=== PATIENT | male | born 1955 | race Hispanic/Latino ===

== ENCOUNTER 2018-11-03 08:40 | Day surgery (SDC) | payer BC ==
--- NOTE | 2018-11-02 07:05 | EKG ---
Test Date: 2018-11-01 Test Time: 11:16:30 Planing Machine Operator: AV MEASUREMENT RESULTS: Intervals: Rate: 59 TN: 198 QRSD: 104 QT: 406 QTc: 401 Howard: P: 56 TN: 198 QRS: 53 T: 69 INTERPRETIVE STATEMENTS: Sinus bradycardia Nonspecific T wave abnormality Abnormal ECG Compared to ECG 05/05/2003 18:17:00 T-wave abnormality now present Sinus rhythm no longer present Electronically Signed On 11-02-18 07:02:35 CDT by Parminder Montiel
--- OUTSIDE RECORDS SUMMARY | 2018-11-03 08:45 | XMS REPORT | Continuity of Care Document ---
:1955 Author Organization [employer] [facility] Care Team Providers Name Role Phone [employer] [facility] Unavailable Unavailable Problems Problem Status Onset Classification Date Comments Source Date Reported ELIZA Active 05/10/19 [place] Other pulmonary 03/11/20 09/25/2018 [facility] embolism without 18 [place] acute cor pulmonale CCL LHC W Active 10/18/19 [place] POSSIBLE 18 Asbestosis Active Problem 10/26/2018 Medical Group, [facility] [place], [place] Asthma Active Problem 10/26/2018 [facility] Group, [place] Hypertension Active Problem 10/26/2018 [facility] Group, [place] Insomnia Active Problem 10/26/2018 [facility] Group, [facility], [place] Obesity Active Problem 10/26/2018 Medical Group, OPID [place],[facility], [place] Chest pain, 09/25/2018 [facility] unspecified [place] Shortness of 09/25/2018 [facility] breath [place] Sleep apnea, 09/25/2018 [facility] unspecified [place] Medications Medication Details Route Status Patient Ordering Order Source Instructions Provider Date amLODIPine 10 =1 tab, PO, Active Medical mg oral tablet Daily, # 90 019 Group tab, Refill(s) 3, Pharmacy: [facility] [id number] losartan 50 mg =1 tab, PO, Active Medical oral tablet Daily, # 90 019 Group tab, Refill(s) 3, Pharmacy: [facility] 76356 Levofloxacin 500 mg=1 No Longer Medical 500 MG Oral tab, PO, Active 018 Group Tablet Q24H, X 10 [Levaquin] day, # 10 tab, 0 Refill(s), Pharmacy: [facility] 98273 losartan 50 mg 50 mg=1 tab, No Longer Medical oral tablet PO, Daily, # Active 018 Group 90 tab, 1 Refill(s), Pharmacy: [facility] 07609 Aspirin 81 MG 81 mg=1 tab, Active Medical Enteric Coated PO, Daily, # 018 Group Tablet 90 tab, 3 Refill(s), Pharmacy: [facility] [address]8744 Amlodipine 5 MG 5 mg, PO, Active Medical Oral Tablet Daily, # 90 018 Group [Norvasc] tab, 3 Refill(s), Pharmacy: [facility] [address]34 atorvastatin 20 20 mg=1 tab, Active Medical mg oral tablet PO, Daily, # 018 Group 90 tab, 3 Refill(s), Pharmacy: [facility] [address] carvedilol 3.125 mg=1 Active Medical 3.125 mg oral tab, PO, 018 Group tablet BID, # 180 tab, 3 Refill(s), Pharmacy: [facility] [address]163 valsartan 160 160 mg=1 Active Medical mg oral tablet tab, PO, 018 Group Daily, # 90 tab, 3 Refill(s), Pharmacy: [facility] [address] valsartan 320 mg, 2 No Longer tab, Route: Active 018 [facility] PO, Drug form: TAB, Daily, Dosing Weight 95.5, kg, Start date: 10/20/17 9:00:00 CDT, Duration: 30 day, Stop date: 11/18/17 9:00:00 CDTNotes: Same as Diovan tiotropium 18 No Longer 0.018 MG/ACTUAT microgram, 1 Active 018 [facility] Inhalant Powder inhalation, [Spiriva] Route: INHALATION, Drug form: CAP, Daily, Dosing Weight 95.5, kg, Start date: 10/20/17 9:00:00 CDT, Duration: 30 day, Stop date: 11/18/17 9:00:00 CDTNotes: (Same As: Spiriva) Isosorbide 30 mg, 1 No Longer tab, Route: Active 018 [facility] PO, Drug form: ERTAB, QAM, Dosing Weight 95.5, kg, Start date: 10/20/17 9:00:00 CDT, Duration: 30 day, Stop date: 11/18/17 9:00:00 CDTNotes: (Same as:Imdur) "Do Not Crush" Take on empty stomach/ full glass of water. Do not crush atorvastatin 20 mg, 1 No Longer MH tab, Route: Active 018 [facility] PO, Drug form: TAB, Daily, Dosing Weight 95.5, kg, Start date: 10/20/17 9:00:00 CDT, Duration: 30 day, Stop date: 11/18/17 9:00:00 CDTNotes: (Same As: Lipitor) Aspirin 81 MG 81 mg, 1 No Longer MH Enteric Coated tab, Route: Active 018 [facility] Tablet PO, Drug form: ECTAB, Daily, Dosing Weight 95.5, kg, Start date: 10/20/17 9:00:00 CDT, Duration: 30 day, Stop date: 11/18/17 9:00:00 CDTNotes: Do not crush or chew. (Same As: Ecotrin) Amlodipine 10 mg, 1 No Longer MH tab, Route: Active 018 [facility] PO, Drug form: TAB, Daily, Dosing Weight 95.5, kg, Start date: 10/20/17 9:00:00 CDT, Duration: 30 day, Stop date: 11/18/17 9:00:00 CDTNotes: (Same as: Norvasc) Norvasc 5 mg, 1 tab, No Longer MH Route: PO, Active 018 [facility] Drug form: TAB, Daily, Dosing Weight 95.5, kg, Start date: 10/20/17 9:00:00 CDT, Duration: 30 day, Stop date: 11/18/17 9:00:00 CDTNotes: (Same as: Norvasc) carvedilol 3.125 mg, 1 Inactive MH tab, Route: 018 [place] PO, Drug form: TAB, BID, Dosing Weight 95.5, kg, Start date: 10/19/17 17:00:00 CDT, Duration: 30 day, Stop date: 11/18/17 9:00:00 CDTNotes: Give with food. (Same As: Coreg) albuterol 90 2 puff, Inactive mcg/inh Route: [facility] inhalation INHALATION, aerosol Drug Form: AERO/A, Dosing Weight 95.5, kg, Q4H, Start date: 10/19/17 12:00:00 CDT, Duration: 30 day, Stop date: 11/18/17 8:00:00 CDTNotes: Albuterol 90 microgram/in h 8gm HFA WASTE: Aerosol - Return to Pharmacy Same as: [facility] Amlodipine 5 MG 5 mg, PO, Active Oral Tablet Daily, # 30 018 [facility] [Norvasc] tab, 0 Refill(s), Pharmacy: [facility] Ondansetron 4 mg, 2 mL, Inactive Route: IVP, [facility] Drug form: INJ, Q8H, Dosing Weight 95.5, kg, PRN Nausea & Vomiting, Start date: 10/19/17 11:12:00 CDT, Duration: 30 day, Stop date: 11/18/17 11:11:00 CDTNotes: (Same as: Zofran) MEDICATION WASTE Product Size: 4 mg Product Wasted: ___ mg Acetaminophen 650 mg, 2 Inactive tab, Route: [facility] PO, Drug form: TAB, Q4H, Dosing Weight 95.5, kg, PRN Pain Score 1-3, Start date: 10/19/17 11:12:00 CDT, Duration: 30 day, Stop date: 11/18/17 11:11:00 CDTNotes: Do not exceed 4 gm/day. (Same as: Tylenol) tramadol 50 mg, 1 Inactive hydrochloride tab, Route: 50 MG Oral PO, Drug Tablet form: TAB, Q6H, Dosing Weight 95.5, kg, PRN Pain Score 4-6, Start date: 10/19/17 11:12:00 CDT, Duration: 30 day, Stop date: 11/18/17 11:11:00 CDTNotes: Not to exceed 400mg/day. (Same As: Ultram) amLODIPine 10 10 mg, PO, Inactive mg oral tablet Daily, 0 018 [facility] Refill(s) albuterol 90 180 Active mcg/inh microgram=2 018 [facility] inhalation puff, aerosol INHALATION, Q4H, 0 Refill(s) valsartan 320 320 mg, PO, Active mg oral tablet Daily, 0 018 [facility] Refill(s) tiotropium 18 Active 0.018 MG/ACTUAT microgram=1 018 [facility] Inhalant Powder cap, [Spiriva] INHALATION, Daily, 0 Refill(s) aspirin 81 mg 81 mg, 1 Inactive tablet, tab, Route: 018 [facility] chewable CHEW, Drug form: CHEWTAB, Daily, Start date: 10/19/17 10:00:00 CDT, Duration: 30 day, Stop date: 11/18/17 9:00:00 CDTNotes: Take with food. Sodium Chloride 1,000 mL, Inactive 0.9% IV 1,000 Rate: 100 018 [facility] mL ml/hr, Infuse over: 10 hr, Route: IV, Dosing Weight 99.318 kg, Total Volume: 1,000, Start date: 10/19/17 9:46:00 CDT, Duration: 30 day, Stop date: 11/18/17 9:45:00 CDT, 2.18, m2 isosorbide 30 mg=1 tab, No Longer Medical mononitrate 30 PO, QAM, 0 Active 018 Group mg oral tablet, Refill(s) extended release carvedilol 3.125 mg=1 Active Medical 3.125 mg oral tab, PO, 018 Group tablet BID, 0 Refill(s) atorvastatin 20 20 mg=1 tab, Active Medical mg oral tablet PO, Daily, 0 018 Group Refill(s) Aspirin 81 MG 81 mg=1 tab, Active Medical Enteric Coated PO, Daily 018 Group Tablet Phentermine 37.5 mg=1 Active Medical Hydrochloride tab, PO, 018 Group 37.5 MG Oral Daily, X 30 Tablet day, # 30 tab, 0 Refill(s) 200 ACTUAT 2 puff, Active Medical Albuterol 0.09 INHALATION, 018 Group MG/ACTUAT Dry Q4H, # 1 ea, Powder Inhaler 5 Refill(s), [ProAir] Pharmacy: [facility] [id number] Allergies, Adverse Reactions, Alerts Substance Category Reaction Severity Reaction Status Date Comments Source type Reported codeine Assertion Nausea and Drug Active vomiting allergy Medical Group Immunizations Immunization Date Site Status Last Updated Comments Source Given influenza virus Left completed [facility] vaccine, 8 Deltoid Group, inactivated [facility] [place] Results No Data Provided for This Section Pathology Reports No Data Provided for This Section Diagnostic Reports Report Value Date Source Chest Pulmonary CT of chest with IV contrast (pulmonary embolism protocol), 03/07/2018 03/07/2018 [facility] [place] Embolism CTA HISTORY: Chest pain. Shortness of breath. Sleep apnea. TECHNIQUE: Sequential 2.5 mm axial images were obtained from the thoracic inlet through the hemidiaphragms following the bolus infusion of 100 mL of Omnipaque 300 contrast. Multiplanar sagittal and ej nal MIP reconstructions were performed. DLP: 646 mGy-cm. AEC, mA/kV adjustment by patient size, and/or iterative reconstruction technique were used, per departmental dose-optimization program. FINDINGS: Normal heart size. Nondilated thoracic aorta and main pulmonary artery. No evidence of coronary artery calcifications or pericardial effusion. No evidence of hilar or mediastinal mass or lymph node enlargement. No evidence of axillary or supraclavicular lymphadenopathy. Normal thyroid. No evidence of central, segmental, or subsegmental pulmonary emboli. Mildly elevated right hemidiaphragm. Minimal linear atelectasis at the lung bases. No evidence of lobar consolidation, pleural effusions, noncalcified lung nodules, lung cancer, pulmonary emphysema, or interstitial lung disease. No evidenc e of bronchiectasis, peribronchial thickening or inspissated bronchi. Mild degenerative changes in the thoracic spine. Images of the upper abdomen demonstrate no abnormality. IMPRESSION: No evidence of pulmonary emboli. Consultation Notes No Data Provided for This Section Discharge Summaries No Data Provided for This Section History and Physicals No Data Provided for This Section Vital Signs Vital Sign Value Date Comments Source BMI Calculated 35.26 04/07/2018 Medical Group Height 167.64 cm 04/07/2018 Medical Group Weight 99.091 04/07/2018 Medical Group Temperature Oral (F) 98.4 F 04/07/2018 Medical Group Heart Rate 63 04/07/2018 [facility] Group Systolic (mm Hg) 119 04/07/2018 Medical Group Diastolic (mm Hg) 76 04/07/2018 Medical Group BMI Calculated 34.61 11/11/2017 Medical Group Weight 97.273 11/11/2017 Medical Group Temperature Oral (F) 98.1 F 11/11/2017 Medical Group Height 167.64 cm 11/11/2017 Medical Group Heart Rate 66 11/11/2017 Medical Group Systolic (mm Hg) 117 11/11/2017 Medical Group Diastolic (mm Hg) 78 11/11/2017 Medical Group Weight 99 10/24/2017 Medical Group Height 167.64 cm 10/24/2017 Medical Group BMI Calculated 35.23 10/24/2017 [facility] Group Systolic (mm Hg) 126 10/24/2017 Medical Group Diastolic (mm Hg) 86 10/24/2017 Medical Group Temperature Oral (F) 98.4 F 10/24/2017 Medical Group Heart Rate 70 10/24/2017 Medical Group Temperature Oral (F) 98.2 F 10/19/2017 [facility] Respitory Rate 13 10/19/2017 [facility] Systolic (mm Hg) 93 10/19/2017 [facility] Diastolic (mm Hg) 59 10/19/2017 [facility] Weight 95.5 10/19/2017 [facility] BMI Calculated 33.98 10/19/2017 [facility] Height 167.64 cm 10/19/2017 [facility] Height 167.64 cm 10/17/2017 Medical Group Weight 99.318 10/17/2017 Medical Group BMI Calculated 35.34 10/17/2017 Medical Group Heart Rate 66 10/17/2017 [facility] Group Systolic (mm Hg) 114 10/17/2017 Medical Group Diastolic (mm Hg) 75 10/17/2017 [facility] Group Temperature Oral (F) 98.1 F 10/17/2017 Medical Group BMI Calculated 35.42 10/17/2017 [facility] Group Weight 99.545 10/17/2017 [facility] Group Height 167.64 cm 10/17/2017 Medical Group Heart Rate 74 10/17/2017 [facility] Group Systolic (mm Hg) 105 10/17/2017 [facility] Group Diastolic (mm Hg) 66 10/17/2017 [facility] Group Temperature Oral (F) 98.2 F 10/17/2017 [facility] Group Weight 96.477 09/23/2017 Medical Group Temperature Oral (F) 98.2 F 09/23/2017 Medical Group Heart Rate 73 09/23/2017 [facility] Group Systolic (mm Hg) 101 09/23/2017 Medical Group Diastolic (mm Hg) 67 09/23/2017 Medical Group Encounters Location Location Encounter Encounter Reason Attending ADM DC Status Source Details Type Number For Provider Date Date Visit Outpatient [id number] MARINA08/26 [facility] [place] Outpatient [id number] MARINA 09/23 [facility] [id number] Marina09/23 Medicine [facility] Outpatient [id number] MARINA 10/17 [facility] [place] Outpatient [id number] MARY JO 10/17 [facility] [id number] Marina 10/17 10/18 Medicine [facility] Outpatient [id number] Mary Jo 10/17 10/18 Cardiology [facility] [id number] Mary Jo 10/19 10/19 [place] [facility] Outpatient [id number] MARY JO10/24 [facility] [place] [facility] Outpatient [id number] Mary Jo 10/24 10/25 [facility]iology [facility] Outpatient [id number] MARINA11/11 Active [facility] KRISTOFER [place] [facility] Family Outpatient [id number] Marina 11/11 11/12 Medicine Kristofer /2017 [facility] Family Phone [id number] 11/15 11/17 Medicine Message /2017 Medical [facility] MG Family Phone [id number] 11/28 11/30 Medicine Message /2017 [facility] MG Family Phone [id number] 12/02 12/04 Medicine Message /2017 [facility] Family Outside [id number] 02/13 02/15 Medicine Medical /2017 Medical [facility] Outpatient [id number] MICHA 03/07 [facility] [place] [facility] Ambulatory [id number] Micha 03/07 03/07 Pulmonology Pre-Reg [facility] Outpt Diag [id number] Micha 03/07 03/08 [facility] Outpatient Services [facility] [place] Outpatient [id number] MARINA 04/07 [facility] [place] [facility] Family Outpatient [id number] Marina 04/07 04/08 Medicine [facility] /2017 Medical [facility] Outpatient [id number] MARINA 05/03 [facility] [place] Outpatient [id number] LAB VISIT 05/05 [facility] [place] Outpatient [id number] [place] 05/12 [facility] Outpatient [id number] Micha 07/01 07/01 [place] [facility] [place] [facility] Family Phone [id number] 10/20 10/22 Medicine Message [facility] Outpatient [id number] MARY JO 10/24 [facility] [id number] Mary Jo 10/24 10/24 Cardiology Pre-Reg [facility] Procedures Procedure Code Date Perfomer Comments Source Cardiac 39003653 Medical catheterization 6 Group Cardiac 91199484 [place] catheterization 6 Cardiac 26790408 [place] catheterization 6 Cardiac 26843039 [facility] [place] catheterization 6 [place] Knee 81421203 right Medical replacement<sup>1</castro 4 Group p> Knee 22288493 right MH [place] replacement<sup>1</castro 4 p> Knee 47564361 right MH [place] replacement<sup>1</castro 4 p> Knee 10804530 right OPID [place] replacement<sup>1</castro 4 Land p> Appendicectomy 40098401 Medical 6 Group Appendicectomy 58804878 [place] 6 Appendicectomy 46728393 [place] 6 Appendicectomy 83040726 OPID [place] 6 [place] Appendicectomy 01535051 Medical Group Knee 18382858 right Medical replacement<sup>1</castro Group p> Procedure<sup>2</sup> 37511146 left knee Medical scope Group Shoulder replacement 113808394 Medical Group Cardiac 35702658 Medical catheterisation, left Group heart Catheterization of 73727967 Medical left heart Group History of repair of 094101267 Medical rotator cuff Group Cardiac 72348019 [place] catheterisation, left heart Catheterization of 74313274 [place] left heart History of repair of 551953796 [place] rotator cuff Procedure<sup>2</sup> 09916708 left knee [place] scope Cardiac 41970460 [place] catheterisation, left heart History of repair of 003511759 [facility] rotator cuff Procedure<sup>2</sup> 74379305 left knee [place] scope Cardiac 02076155 OP[facility] [place] catheterisation, left [place] heart Catheterization of 85799794 OP[facility] [place] left heart [place] History of repair of 417311749 OP[facility] [place] rotator cuff [place] Procedure<sup>2</sup> 20333582 left knee OPID [place] scope Land Assessment and Plan No Data Provided for This Section Plan of Care No Data Provided for This Section Social History Social History Date Source Social History TypeResponse 10/24/2017 Medical Group Exercise Exercise frequency: 1-2 times/week. Exercise type: Walking.1 Employment/School Status: Employed. 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 Alcohol Current, Frequency: 1-2 times per week. Smoking Status Former smoker; Exposure to Tobacco Smoke None; Cigarette Smoking Last 365 Days No; Reg Smoking Cessation Counseling No; Started at age: 20.0; Stopped at age: 30; entered on: 05/03/18 1Stays active. Social History TypeResponse 10/24/2017 [place] Exercise Exercise frequency: 1-2 times/week. Exercise type: Walking.1 Employment/School Status: Employed. 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 Alcohol Current, Frequency: 1-2 times per week. Smoking Status Former smoker; Exposure to Tobacco Smoke None; Cigarette Smoking Last 365 Days No; Reg Smoking Cessation Counseling No; Started at age: 20.0; Stopped at age: 30; entered on: 05/03/18 1Stays active. Social History TypeResponse 10/24/2017 OPID [place] Exercise Exercise frequency: 1-2 times/week. Exercise type: Walking.1 Employment/School Status: Employed. 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 Alcohol Current, Frequency: 1-2 times per week. Smoking Status Former smoker; Exposure to Tobacco Smoke None; Cigarette Smoking Last 365 Days No; Reg Smoking Cessation Counseling No; Started at age: 20.0; Stopped at age: 30; entered on: 05/03/18 1Stays active. Social History TypeResponse 10/19/2017 [facility] Smoking Status Former smoker; Exposure to Tobacco Smoke None; Cigarette Smoking Last 365 Days Unable to obtain; Reg Smoking Cessation Counseling No entered on: 10/19/17 Family History No Data Provided for This Section Advance Directives No Data Provided for This Section Functional Status No Data Provided for This Section
--- OUTSIDE RECORDS SUMMARY | 2018-11-03 08:46 | XMS REPORT | Summary of Care ---
:1955 Author Organization [facility] [place] Address [address] [place] [address]- Encounter HQ Tommie_riley(FIN) [id number] Date(s): 03/07/18 - 03/07/18 [facility] Outpatient Imaging [place] [address]- [place] Encounter Diagnosis Other pulmonary embolism without acute cor pulmonale (Final) - 03/11/18 Chest pain, unspecified (Final) - Shortness of breath (Final) - Sleep apnea, unspecified (Final) - Discharge Disposition: Home or Self Care Attending Physician: Alfonso Conde MD Referring Physician: Alfonso Conde MD Vital Signs No data available for this section Problem List Condition Effective Dates Status Health Status Informant Asbestosis(Confirmed) Active Asthma(Confirmed) Active Hypertension(Confirmed) Active Insomnia(Confirmed) Active Obesity(Confirmed) Active Allergies, Adverse Reactions, Alerts Substance Reaction Severity Status codeine Nausea and vomiting Active Medications No data available for this section Results No data available for this section Immunizations Given and Recorded Vaccine Date Status Refusal Reason influenza virus vaccine, inactivated 04/07/18 Given Procedures Procedure Date Related Diagnosis Body Site Status Cardiac catheterization 2005 Completed Knee replacement1 2003 Completed Appendicectomy 1965 Completed Cardiac catheterisation, left heart Completed Catheterization of left heart Completed History of repair of rotator cuff Completed Procedure2 Completed [id number] knee scope Social History Social History Type Response Exercise Exercise frequency: 1-2 times/week. Exercise type: Walking.1 Employment/School Status: Employed. 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 Alcohol Current, Frequency: 1-2 times per week. Smoking Status Former smoker; Exposure to Tobacco Smoke None; Cigarette Smoking Last 365 Days No; Reg Smoking Cessation Counseling No; Started at age: 20.0; Stopped at age: 30; entered on: 1/2/19 1Stays active. Assessment and Plan No data available for this section
--- OUTSIDE RECORDS SUMMARY | 2018-11-03 08:46 | XMS REPORT | Summary of Care ---
:1955 Author Organization [facility] Cardiology [place] Address [address] [place] [address]- Encounter HQ Encntr_alias(FIN) [id number] Date(s): 10/24/18 - 10/24/18 [facility] [address] [place] [phone] Attending Physician: Darien Edwards MD Vital Signs No data available for [...] repair of rotator cuff Completed Procedure2 Completed [id number] knee scope Social History Social History Type Response Exercise Exercise frequency: 1-2 times/week. Exercise type: Walking.1 Employment/School Status: Employed. 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 Alcohol Current, Frequency: 1-2 times per week. Smoking Status Former smoker; Exposure to Tobacco Smoke None; Cigarette Smoking Last 365 Days No; Reg Smoking Cessation Counseling No; Started at age: 20.0; Stopped at age: 30; entered on: 05/03/18 1Stays active. Assessment and Plan No data available for this section
--- OUTSIDE RECORDS SUMMARY | 2018-11-03 08:46 | XMS REPORT | Summary of Care ---
:1955 Author Organization [facility] Address [address] [place] [address]- Encounter HQ Zeeshan(FIN) [id number] Date(s): 04/07/18 - 04/07/18 [facility] [address] [place] [address]- [phone] Discharge Disposition: Home or Self Care Attending Physician: Deepika Miner DO Vital Signs Most recent to oldest [Reference Range]: 1 Height 167.64 cm (04/07/18 2:28 PM) Temperature Oral [96.4-99.1 DegF] 98.4 DegF (04/07/18 2:28 PM) Blood Pressure [90-140/60-90 mmHg] 119/76 mmHg (04/07/18 2:28 PM) Peripheral Pulse Rate [60-100 bpm] 63 bpm (04/07/18 2:28 PM) Weight 99.091 kg (04/07/18 2:28 PM) Body Mass Index 35.26 m2 (04/07/18 2:28 PM) Problem List Condition Effective Dates Status Health Status Informant Asbestosis(Confirmed) Active Asthma(Confirmed) Active Hypertension(Confirmed) Active Insomnia(Confirmed) Active Obesity(Confirmed) Active Allergies, Adverse Reactions, Alerts Substance Reaction Severity Status codeine Nausea and vomiting Active Medications Levaquin 500 mg oral tablet 500 mg=1 tab, PO, Q24H, X 10 day, # 10 tab, 0 Refill(s), Pharmacy: [facility] [id number] Start Date: 04/07/18 Stop Date: 04/17/18 Status: Completed Results No data available for this section Immunizations Given and Recorded Vaccine Date Status Refusal Reason influenza virus vaccine, inactivated 04/07/18 Given Procedures Procedure Date Related Diagnosis Body Site Status Cardiac catheterization 2005 Completed Knee replacement1 2003 Completed Appendicectomy 1965 Completed Cardiac catheterisation, left heart Completed Catheterization of left heart Completed History of repair of rotator cuff Completed Procedure2 Completed [id number] knee scope Social History Social History Type Response Exercise Exercise frequency: 1-2 times/week. Exercise type: Walking.1 Employment/School Status: Employed. 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 Alcohol Current, Frequency: 1-2 times per week. Smoking Status Former smoker; Exposure to Tobacco Smoke None; Cigarette Smoking Last 365 Days No; Reg Smoking Cessation Counseling No; Started at age: 20.0; Stopped at age: 30; entered on: 05/03/18 1Stays active. Assessment and Plan No data available for this section
--- OUTSIDE RECORDS SUMMARY | 2018-11-03 08:46 | XMS REPORT | Summary of Care ---
:1955 Author Organization [facility] Address [address] [place] [address]- Encounter HQ Encntr_alias(FIN) [id number] Date(s): 10/20/18 - 10/21/18 [facility] [address] [place] [address]- [phone] Vital Signs No data available for this section Problem List Condition Effective Dates Status Health Status Informant Asbestosis(Confirmed) Active Asthma(Confirmed) Active Hypertension(Confirmed) Active Insomnia(Confirmed) Active Obesity(Confirmed) Active Allergies, Adverse Reactions, Alerts Substance Reaction Severity Status codeine Nausea and vomiting Active Medications amLODIPine 10 mg oral tablet =1 tab, PO, Daily, # 90 tab, Refill(s) 3, Pharmacy: [facility] [id number] Start Date: 10/20/18 Status: Ordered Results No data available for this section Immunizations Given and Recorded Vaccine Date Status Refusal Reason influenza virus vaccine, inactivated 04/07/18 Given Procedures Procedure Date Related Diagnosis Body Site Status Cardiac catheterization 2005 Completed Knee replacement1 2003 Completed Appendicectomy 1965 Completed Cardiac catheterisation, left heart Completed Catheterization of left heart Completed History of repair of rotator cuff Completed Procedure2 Completed [id number] knee scope Social History Social History Type Response Exercise Exercise frequency: 1-2 times/week. Exercise type: Walking.1 Employment/School Status: Employed. 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 Alcohol Current, Frequency: 1-2 times per week. Smoking Status Former smoker; Exposure to Tobacco Smoke None; Cigarette Smoking Last 365 Days No; Reg Smoking Cessation Counseling No; Started at age: 20.0; Stopped at age: 30; entered on: 05/03/18 1Stays active. Assessment and Plan No data available for this section
--- OUTSIDE RECORDS SUMMARY | 2018-11-03 08:46 | XMS REPORT | Summary of Care ---
:1955 Author Organization [facility] Pulmonology [facility] [address] [place] [address]- Encounter HQ Encntr_alias(FIN) [id number] Date(s): 03/07/18 - 03/07/18 [facility] Pulmonology [place] [address] [place] [address]- [phone] Attending Physician: Alfonso Conde MD Vital Signs No [...] repair of rotator cuff Completed Procedure2 Completed [id number] knee scope Social History Social History Type Response Exercise Exercise frequency: 1-2 times/week. Exercise type: Walking.1 Employment/School Status: Employed. 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 Alcohol Current, Frequency: 1-2 times per week. Smoking Status Former smoker; Exposure to Tobacco Smoke None; Cigarette Smoking Last 365 Days No; Reg Smoking Cessation Counseling No; Started at age: 20.0; Stopped at age: 30; entered on: 05/03/18 1Stays active. Assessment and Plan No data available for this section
[2018-11-03] MEDS: OXYMETAZOLINE HCL 0.05% 15ML NAS ONE ×5 (09:05→11:12)
[2018-11-03] MEDS ORDERED: Ringers Lactate 1,000 ML IV ONE ×2 (09:06→13:59)
[2018-11-03] MEDS ORDERED: OXYMETAZOLINE HCL 0.05% 15ML NAS ONE ×2 (09:50→13:10)
[2018-11-03] MEDS ORDERED: LIDOCAINE 1% W/EPI 1:100,000 MDV 50 ML VIAL ONE (09:50)
[2018-11-03] MEDS: LIDOCAINE 1.5% W/EPI AMP 5 ML ONE ×2 (10:26→11:20)
[2018-11-03] MEDS ORDERED: PROPOFOL 200 MG/20 ML VIAL IV ONE (10:35)
[2018-11-03] MEDS ORDERED: ROCURONIUM 50 MG/5 ML VIAL IV ONE (10:37)
[2018-11-03] MEDS ORDERED: FENTANYL CITR 100 MCG/2 ML ONE ×2 (10:37→11:50)
[2018-11-03] MEDS ORDERED: LIDOCAINE 2% MPF 5 ML VIAL ONE (10:37)
[2018-11-03] MEDS ORDERED: MIDAZOLAM HCL 2 MG/2 ML INJ ONE (10:38)
[2018-11-03] MEDS ORDERED: ONDANSETRON 4 MG/2 ML VIAL ONE (10:39)
[2018-11-03] MEDS ORDERED: SCOPOLAMINE HYDROBROMIDE PATCH TD ONE (10:54)
[2018-11-03] MEDS ORDERED: NA CHLORIDE 0.9% 500 ML ONE ×2 (11:10→12:33)
[2018-11-03] MEDS ORDERED: EPHEDRINE SULF 50 MG/ML VIAL ONE (11:44)
[2018-11-03] MEDS ORDERED: NEOSTIGMINE 1 MG/ML -10 ML VIAL ONE (13:37)
[2018-11-03] MEDS ORDERED: GLYCOPYRROLATE 0.2 MG/ML SYR ONE (13:37)
[2018-11-03] MEDS ORDERED: TRAMADOL HCL 50 MG TAB PO ONE (14:50)
[2018-11-03] MEDS ORDERED: TRAMADOL HCL 50 MG TAB ONE (15:05)
--- NOTE | 2018-11-04 10:46 | OP ---
Date of Procedure: 11/03/2018 Surgeon: Shae Alcala MD Postoperative Diagnoses: Septal deviation and chronic rhinosinusitis. Postoperative Diagnoses: Septal deviation and chronic rhinosinusitis including nasal polyps. Indication For Procedure: Mr. Clark is a 63-year-old who presented to the ENT Clinic with symptoms o f chronic rhinosinusitis. He was treated with maximal medical therapy and underwent post treatment C T scan demonstrating concern for nasal polyposis of the maxillary sinus, worse on the right side and chronic ethmoid sinusitis with narrow frontal recesses and partial opacification of the frontal sinus es as well as the right-sided septal deviation. The risks, benefits, and alternatives to the procedu re were discussed with the patient. He agreed to proceed. Description Of Procedure: The patient was brought to the operating room. He was placed under genera l anesthesia via oral endotracheal tube. The head of bed was turned 90 degrees. The patient's nasal hairs were trimmed and the nasal cavity was packed with Afrin-soaked pledgets. The roundCorner navigat ion was placed on the patient's forehead and registration was performed using the laser pointer. Acc uracy was confirmed by [id number] matching including the tip of the nose, the base of the columel la, the glabella, and the bilateral medial and lateral canthi, and accuracy was felt to be very good. The pledgets were removed and the 0-degree endoscope was used to perform nasal endoscopy. There is significant right-sided septal deviation. The middle meatus on the right side showed some friable g ranulation tissue and mucus in the middle meatus. Ethmoid bulla area was obstructed by moderate size inflammatory-appearing polyp. Left side demonstrated no obvious polyps, but on closer view, there w as an accessory os draining thick white mucus. The bilateral uncinate process and insertion point of the middle turbinate were injected with 1.5% lidocaine with epinephrine. A backbiter was used to in cise the uncinate process bilaterally. A 90-degree Blakesley was then used to remove the uncinate pr ocess. The left maxillary sinus was noted to have moderate amount of thick mucoid fluid, which was s uctioned. There was no discrete polyp noted, but the lining of the maxillary sinus was moderately ed ematous. On the right side, there was a large polyp on the anterolateral portion. A utilizer was us ed to grasp and remove this polyp. During dissection of the right maxillary sinus, there was moderat e-to-severe bleeding. The area was packed with Afrin-soaked pledgets and attention was turned to the left. Ethmoid dissection was performed using the roundCorner suction navigation to aid in identificati on of the lamina and the skull base. Bony partitions were removed using a 45- and 90-degree Blakesle ys. Careful dissection was undertaken and the anterior ethmoidal artery was identified. During diss ection, the nasal cavity was noted to slowly fill with blood and after suctioning the bleeding did no t appear to come from the left ethmoid cavity. The right side was examined, nasal pledgets were donnie clari and again [id number] bleeding was coming from the right middle meatus region, though a di screte vessel or discrete site of bleeding was difficult to identify and Ultracell nasal packing was placed in the middle meatus to provide better pressure to the area and attention was turned to the le ft side. The left frontal recess area was examined and the 30- and 70-degree endoscopes were used to visualize the area. On review of the CT scan, the frontal recess was difficult to identify. The tr ue frontal recess appeared to be blocked by bony partition. After careful probing with the navigatio n suction, an Entellus balloon device was used to puncture through the bony partition in order to cre ate an opening into the frontal recess. A roof of the agger nasi cell was in close proximity in the area of a small area and great care was taken in this area to avoid damage. Once this bony partition was punctured, a balloon dilation was performed. The balloon device was withdrawn and the ethmoid c avity was packed with Afrin-soaked pledgets. Attention was then returned to the right side. The pre viously placed Ultracell packing was removed and the area was examined. Bleeding was significantly d ecreased, but not resolved and new Ultracell packing was placed. Careful consideration was made at t his point regarding advisability of continuing total blood loss at this point in the case was estimat ed to be about 400 mL and consideration was given regarding safety of continuing with further right-s ided surgery and septoplasty. In light of the degree of blood loss, the decision was made to forego additional dissection with plans for future surgery pending the patient's degree of symptoms for ease of removal of packing in clinic. The Ultracell was removed and a Rhino Rocket was placed within the right middle meatus and inflated with 15 mL of sterile saline. A dissolvable Zero gel dressing was applied into the left ethmoid cavity. The nasopharynx was thoroughly suctioned. An orogastric tube was passed and the oropharynx was thoroughly suctioned using Yankauer. The patient was then returned to care of Anesthesia for awakening and extubation in the operating room, which proceeded without di fficulty. Disposition: The patient will be discharged home later today in the care of his and followup wi Dr. Alcala on Tuesday for removal of the right Rhino Rocket at that time pending further complicat ion. The patient will start standard sterile saline irrigations and be monitored in terms of symptom s during healing period. CLEMENT/ROSAURA Voice ID: [id number] Report ID: [id number]
== END 2018-11-03 15:29 | disposition home or self-care (01) ==
LOC: OR 08:40
PROVIDERS: ATTEND Otolaryngology
PROC: 09BV8ZZ Excision of Left Ethmoid Sinus, Via Natural or Artificial Opening Endoscopic (ICD-10-PCS; 2018-11-03)
PROC: 09BQ8ZZ Excision of Right Maxillary Sinus, Via Natural or Artificial Opening Endoscopic (ICD-10-PCS; 2018-11-03)
PROC: 09BR8ZZ Excision of Left Maxillary Sinus, Via Natural or Artificial Opening Endoscopic (ICD-10-PCS; 2018-11-03)
PROC: 09BS8ZZ Excision of Right Frontal Sinus, Via Natural or Artificial Opening Endoscopic (ICD-10-PCS; 2018-11-03)
PROC: 09BT8ZZ Excision of Left Frontal Sinus, Via Natural or Artificial Opening Endoscopic (ICD-10-PCS; 2018-11-03)
PROC: 09BU8ZZ Excision of Right Ethmoid Sinus, Via Natural or Artificial Opening Endoscopic (ICD-10-PCS; 2018-11-03)
PROC: 8E09XBZ Computer Assisted Procedure of Head and Neck Region (ICD-10-PCS; 2018-11-03)
PROC: 8E09XBZ Computer Assisted Procedure of Head and Neck Region (ICD-10-PCS; principal; 2018-11-03 10:45)
DX: J32.2 Chronic ethmoidal sinusitis (principal); J33.8 Other polyp of sinus; J32.4 Chronic pansinusitis; J34.2 Deviated nasal septum; J34.3 Hypertrophy of nasal turbinates; I10 Essential (primary) hypertension; E78.00 Pure hypercholesterolemia, unspecified; G47.30 Sleep apnea, unspecified; E66.9 Obesity, unspecified; Z79.82 Long term (current) use of aspirin; Z79.899 Other long term (current) drug therapy
CPT/HCPCS: 88304; 88311; 93005; J2001; J2250; J2405; J2704; J2710; J3010